=== PATIENT | male | born 1950 | race Caucasian/White ===

== ENCOUNTER 2019-05-02 06:08 | Outpatient (RCR) | payer MEDICARE, SELFPAY | END 2019-05-02 23:59 | disposition home or self-care (01) | LOC: ONCRAD 06:08 | PROVIDERS: Family Provider Family Medicine; Visit Provider Radiology Radiation Oncology | DX: Z51.0 Encounter for antineoplastic radiation therapy (principal); C09.9 Malignant neoplasm of tonsil, unspecified; R23.4 Changes in skin texture; Z93.1 Gastrostomy status; Z79.82 Long term (current) use of aspirin | CPT/HCPCS: 77280; 77386 ×3; 80053; 85025 ==

== ENCOUNTER 2019-05-21 10:48 | Outpatient (RCR) | payer MEDICARE, SELFPAY | END 2019-05-29 00:01 | LOC: ONCRAD 10:48 | PROVIDERS: Family Provider Family Medicine; Visit Provider Nurse Practitioner Family | DX: Z51.0 Encounter for antineoplastic radiation therapy (principal); C09.9 Malignant neoplasm of tonsil, unspecified; Z93.1 Gastrostomy status; K12.1 Other forms of stomatitis; L59.8 Other specified disorders of the skin and subcutaneous tissue related to radiation; Y84.2 Radiological procedure and radiotherapy as the cause of abnormal reaction of the patient, or of later complication, without mention of misadventure at the time of the procedure; Y78.1 Therapeutic (nonsurgical) and rehabilitative radiological devices associated with adverse incidents; Z79.891 Long term (current) use of opiate analgesic | CPT/HCPCS: 77336 ×2; 77386 ×3; 87070; 87077; 87176; 87186 ×2; 87205; 96360 ==

== ENCOUNTER 2019-06-19 13:53 | Outpatient (RCR) | payer MEDICARE, SELFPAY ==
--- NOTE | 2019-06-19 14:04 | CT_ITS ---
WS: [id number] CT NECK WITH CONTRAST HISTORY: MALIGNANT NEOPLASM OF TONSIL TECHNIQUE: Contiguous 5 mm axial images are performed through the neck with intravenous contrast. Sag ittal and coronal reformats are also submitted. All CT scans at [facility] use at least o ne of these dose optimization techniques: automated exposure control; mA and/or kV adjustment per pat ient size (includes targeted exams where dose is matched to clinical indication); or iterative recons truction. CONTRAST: CONTRAST: Omnipaque 300; 95 mL IV. DLP: 2097.63 mGycm COMPARISON: 01/26/2019 Significant improvement in the neoplasm centered in the larynx as described on 01/26/2019. There is so me very mild persistent thickening along the RIGHT izzy- epiglottic fold and the posterior wall of the hypopharynx at the level of the pyriform sinuses. Residual soft tissue mass along the RIGHT aryepigl ottic fold measures 13 x 7 mm. Much better air distention of the larynx. There is no significant resi dual stenosis in the larynx or compromise of the airway. No new or increasing masses or soft tissue e nhancement. Torus tubarius and fossa of Rosenmuller and parapharyngeal fat are normal. Thyroid gland and salivary glands are normally enhancing with no masses. No osseous abnormalities. 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 Cervical chain lymphadenopathy has essentially resolved. There some very mild soft tissue thickening at level IIa and IIb on the RIGHT as on the prior study. Closely associated with the RIGHT carotid ar [place]. Probably post radiation residual of a treated lymph nodes. No discrete lymph nodes. Lung apices are clear. CT/CT neck w con* [id number] IMPRESSION: 1. Near complete resolution of the large laryngeal mass as described on 019. There is minimal thickening along the RIGHT aryepiglottic fold and the adj acent posterior wall of the hypopharynx. 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 Recommend continued follow-up CT evaluatio n. 2. Mild soft tissue thickening along the RIGHT cervical chain with no discrete lymph nodes. Soft tissue thickening is probably treated lymphadenopathy. 3. No new mass or adenopathy.
[2019-06-19 14:26] LABS: Blood Urea Nitrogen 19 mg/dL (8-23); Glomerular Filtration Rate 112.5 mL/min (90-130)
[2019-06-19] MEDS: iohexol 300 mg/mL 100 mL Btl IV (14:35)
== END 2019-06-29 23:59 | disposition home or self-care (01) ==
LOC: RADWPI 13:53
PROVIDERS: Family Provider Family Medicine; PCP Family Medicine; Visit Provider Radiology Radiation Oncology
DX: I96 Gangrene, not elsewhere classified (principal); L89.153 Pressure ulcer of sacral region, stage 3
CPT/HCPCS: 11042; 70491; 82565; 84520; 99212; G0463; Q9967

== ENCOUNTER → 2019-07-24 13:52 | Outpatient (BNVA) | payer MEDICARE, SELFPAY | PROVIDERS: Family Provider Family Medicine; PCP Family Medicine; Visit Provider Otolaryngology | DX: C09.9 Malignant neoplasm of tonsil, unspecified (principal) | CPT/HCPCS: 31575; 99214 ==